=== PATIENT | female | born 1935 | race Caucasian/White ===

== ENCOUNTER 2016-08-23 13:11 | Emergency (ER) | payer MEDICARE, OTHER ==
[~2016-08-23 13:11] MED LIST: BENICAR20 MG; CALCIUM 600 W/V1 TAB; DETROL2 MG; IBUPAIN-200200 MG; IRON1 TAB; LEXAPRO10 MG; MULTIVITAMIN1 TAB; TYLENOL EXTRA500 MG; XALATAN2.5 ML
[2016-08-23] MEDS ORDERED: LIPITOR10 M1 PO (13:59)
[2016-08-23] MEDS ORDERED: TYLENOL325 M2 PO (13:59)
[2016-08-23] MEDS ORDERED: ASPIRIN EC81 MG PO (13:59)
[2016-08-23] MEDS ORDERED: BISCOLAX10 MG PR (14:00)
[2016-08-23] MEDS ORDERED: OS-CAL 500+D31 EAC1 PO (14:00)
[2016-08-23] MEDS ORDERED: AZOPT10 ML LEFT EYE (14:00)
[2016-08-23] MEDS ORDERED: NEURONTIN300 M1 PO (14:01)
[2016-08-23] MEDS ORDERED: CYCLOBENZAPRINE5 M1 PO (14:01)
[2016-08-23] MEDS ORDERED: CELEXA10 M1 PO (14:01)
[2016-08-23] MEDS ORDERED: NORCO 7.5-3251 EACH PO (14:01)
[2016-08-23] MEDS ORDERED: LEVAQUIN500 M1 PO (14:02)
[2016-08-23] MEDS ORDERED: GLUCOPHAGE1000 M1 PO (14:04)
[2016-08-23] MEDS ORDERED: MILK OF MAGNESIA PO (14:04)
[2016-08-23] MEDS ORDERED: LIDOCAINE1 EACH TD (14:04)
[2016-08-23] MEDS ORDERED: MULTIVITAMINS1 EAC6 PO (14:05)
[2016-08-23] MEDS ORDERED: SENNA S TABLET1 EACH PO (14:06)
[2016-08-23] MEDS ORDERED: TOLTERODINE TART4 M1 PO (14:07)
[2016-08-23] MEDS ORDERED: TRAVATAN Z5 M1 LEFT EYE (14:08)
[2016-08-23] MEDS ORDERED: ULTRAM50 M1 PO (14:08)
[2016-08-23] MEDS ORDERED: VALSARTAN-HCTZ1 EA10 PO (14:09)
[2016-08-23] MEDS ORDERED: ZOFRAN4 M2 PO (14:09)
[2016-08-23 14:35] LABS: BASO % 0.3 % (0-2); EOS % 1.2 % (0-7); EOSINOPHIL ABSOLUTE COUNT 0.1 tho/cmm (0.0-0.7); HCT-HEMATOCRIT 36.6 % (34.0-49.0); IMMATURE GRANULOCYTES ABSOLUTE 0.07 tho/cmm (0-0.03); IMMATURE GRANULOCYTES PERCENT 0.6 % (0-0.3); LYMPH % 20.4 % (20-45); LYMPH ABSOLUTE COUNT 2.2 tho/cmm (0.8-4.5); MCH (MEAN CORPUSCULAR HGB) 25.9 pg (28.0-32.0); MCHC MEAN CORPUSCULAR HGB CONC 32.8 % (32.0-36.0); MEAN PLATELET VOLUME 10.2 cmc (9.4-12.4); MONO % 8.6 % (0-12); MONOCYTE ABSOLUTE COUNT 0.9 tho/cmm (0.0-1.2); NEUTROPHIL ABSOLUTE COUNT 7.4 tho/cmm (1.6-8.0); NEUTROPHIL-AUTOMATED 7.4 tho/cmm (1.6-8.0); NEUTROPHILS % 68.9 % (40-80); PLATELET COUNT 457 tho/cmm (150-450); RED BLOOD COUNT 4.63 mil/cmm (4.00-5.20); RED CELL DISTRIBUTION WIDTH 14.3 % (12.4-16.4); WHITE BLOOD COUNT 10.8 tho/cmm (4.0-10.0)
[2016-08-23 14:46] LABS: ALB/GLOB RATIO 0.5 (0.8-2.0); ALBUMIN 2.8 g/dl (3.5-5.0); ALKALINE PHOSPHATASE 121 U/L (33-138); ALT/SGPT 30 U/L (12-78); ANION GAP 19 mmol/L (0-20); AST/SGOT 27 U/L (10-40); BILIRUBIN,TOTAL 0.5 mg/dl (0-1.5); BLOOD UREA NITROGEN 42 mg/dl (6-24); CALCIUM 9.3 mg/dl (8.5-10.5); CARBON DIOXIDE-VENOUS 23 mmol/L (22-32); CHLORIDE 100 mmol/l (96-110); CREATININE 1.53 mg/dl (0.50-1.10); GLUCOSE 129 mg/dL (70-110); LIPASE 116 U/L (73-393); POTASSIUM 3.2 mmol/L (3.7-5.1); SODIUM 139 mmol/L (135-145); eGFR VALUE FOR BLACK 37 mL/Min
[2016-08-23] MEDS ORDERED: MIRALAX17 G2 PO (18:33)
== END 2016-08-23 19:24 ==
LOC: EDMED 13:11
PROVIDERS: Emergency Medicine
DX: K59.00 Constipation, unspecified (principal); N17.9 Acute kidney failure, unspecified; E86.0 Dehydration; E87.6 Hypokalemia; I10 Essential (primary) hypertension; Z79.82 Long term (current) use of aspirin; Z79.899 Other long term (current) drug therapy
CPT/HCPCS: J2405; J7030